=== PATIENT | female | born 1960 | race Caucasian/White ===

== ENCOUNTER 2016-04-14 12:25 | Emergency (ER) | payer SELFPAY ==
[~2016-04-14] VITALS: Ht 162.6 cm; Wt 91.2 kg
[~2016-04-14 12:25] MED LIST: CLON1TAB3 PO; METO50TA2 PO; PROM25SU32 RC
[2016-04-14] MEDS ORDERED: ONDANSETRON PF 4 MG/2 ML VIAL. IV ONE (13:15)
[2016-04-14] MEDS ORDERED: IV NORMAL SALINE 1000ML BAG 1,000 ML IV ONE ×2 (13:15→15:45)
[2016-04-14 13:43] LABS: BASO # 0.1 x10^3/uL (0.0-0.2); BASO % 0 % (0-3); EOS % 6 % (0-3); HEMATOCRIT 50.5 % (36.0-47.0); HEMOGLOBIN 16.4 g/dL (12.0-15.5); LYMPH # 2.8 x10^3/uL (1.0-4.8); LYMPH % 16 % (24-48); MEAN CORPUSCULAR HEMOGLOBIN 30 pg (25-35); MEAN CORPUSCULAR HGB CONC 33 g/dL (31-37); MEAN CORPUSCULAR VOLUME 93 fL (79-100); MONO % 10 % (0-9); NEUT % 68 % (31-73); PLATELET COUNT 394 x10^3/uL (140-400); RED BLOOD COUNT 5.43 x10^6/uL (3.50-5.40); RED CELL DISTRIBUTION WIDTH 13.8 % (11.5-14.5); WHITE BLOOD COUNT 17.6 x10^3/uL (4.0-11.0)
[2016-04-14 13:55] LABS: CALCIUM 9.2 mg/dL (8.5-10.1); GFR 57.6; POTASSIUM 3.1 mmol/L (3.5-5.1)
[2016-04-14] MEDS ORDERED: KETOROLAC TROMETHAMINE 30 MG/ML SYRINGE. IV ONE (14:00)
--- NOTE | 2016-04-14 14:59 | RAD ---
CT of the abdomen and pelvis without contrast, 04/14/2016: History: Nausea and vomiting and diarrhea Noncontrast scans were obtained as requested. The unopacified liver shows no abnormality. No radiopaque gallstones are seen. No pericholecystic edema is evident. The pancreas is unremarkable. The spleen is fairly small. The unopacified kidneys show no evidence of obstruction. There is mild bilateral renal cortical scarring. No adrenal abnormality is detected. There is mild aortoiliac calcific plaquing without evidence of aneurysm. No abdominal or pelvic adenopathy is seen. The uterus is unremarkable. The bowel loops are not dilated. There is fluid in the colon compatible with the history of diarrhea. No mural thickening is evident. The appendix is not visualized. No dilated appendix or pericecal inflammatory process is seen. The small bowel loops are unremarkable. The stomach is mildly distended with fluid and gas. No free fluid or free air is evident in the abdomen or pelvis. IMPRESSION: 1. Fluid throughout the colon compatible with the history of diarrhea. 2. Mild gastric distention. 3. Otherwise no acute abdominal or pelvic abnormality is detected. PQRS Compliance Statement: One or more of the following individualized dose reduction techniques were utilized for this examination: 1. Automated exposure control 2. Adjustment of the mA and/or kV according to patient size 3. Use of iterative reconstruction technique
[2016-04-14 17:00] VITALS: BP 140/82
--- NOTE | 2016-04-14 17:47 | PHYS DOC ---
Past Medical History Past Medical History: Anxiety, Diabetes-Type II, GERD, High Cholesterol, Hypertension, IBS, Migraines, Other Additional Past Medical Histor: NEUROPATHY Past Surgical History: Tonsillectomy, Tubal ligation Alcohol Use: None Drug Use: None Adult General Chief Complaint Chief Complaint: NAUSEA/VOMITING/DIARRHA HPI HPI 56-year-old female who is had ongoing diarrhea with some mild nausea and vomiting that started today. Patient states she's had diarrhea for the last several days. She been trying Imodium without relief. She also states generalized abdominal pain and denies any fever or chills. She has had little to eat or drink today. Pt has history of DM-II, HTN, and hyperlipidemia. Review of Systems Review of Systems Constitutional: Denies fever or chills [] Eyes: Denies change in visual acuity, redness, or eye pain [] HENT: Denies nasal congestion or sore throat [] Respiratory: Denies cough or shortness of breath [] Cardiovascular: No additional information not addressed in HPI [] GI: Denies abdominal pain, has nausea, has vomiting, denies bloody stools, has diarrhea [] : Denies dysuria or hematuria [] Musculoskeletal: Denies back pain or joint pain [] Integument: Denies rash or skin lesions [] Neurologic: Denies headache, focal weakness or sensory changes [] Endocrine: Denies polyuria or polydipsia [] Current Medications Current Medications Current Medications Medications (Trade) Dose Ordered Sig/[facility] Start Time Stop Time Status Last Admin Dose Admin Ketorolac Tromethamine 30 mg 30 mg 1X ONCE 04/14/16 14:00 04/14/16 14:02 DC 04/14/16 14:36 30 MG Ondansetron HCl (Zofran) 4 mg 1X ONCE 04/14/16 13:15 04/14/16 13:18 DC 04/14/16 13:41 4 MG Sodium Chloride (Iv Sodium Chloride 0.9% 1000ml Bag) 1,000 ml @ 1,000 mls/hr 1X ONCE 04/14/16 15:45 04/14/16 16:44 DC 04/14/16 17:00 1,000 MLS/HR Allergies Allergies Allergies Coded Allergies Type Severity Reaction Last Updated Verified No Known Drug Allergies 03/11/14 No Physical Exam Physical Exam Constitutional: Well developed, well nourished, no acute distress, non-toxic appearance. [] HENT: Normocephalic, atraumatic, bilateral external ears normal, oropharynx moist, no oral exudates, nose normal. [] Eyes: PERRLA, EOMI, conjunctiva normal, no discharge. [] Neck: Normal range of motion, no tenderness, supple, no stridor. [] Cardiovascular:Heart rate regular rhythm, no murmur [] Lungs & Thorax: Bilateral breath sounds clear to auscultation [] Abdomen: Bowel sounds normal, soft, mild generalized tenderness, no masses, no pulsatile masses. [] Skin: Warm, dry, no erythema, no rash. [] Back: No tenderness, no CVA tenderness. [] Extremities: No tenderness, no cyanosis, no clubbing, ROM intact, no edema. [] Neurologic: Alert and oriented X 3, normal motor function, normal sensory function, no focal deficits noted. [] Psychologic: Affect normal, judgement normal, mood normal. [] Current Patient Data Vital Signs Vital Signs Date Time Temp Pulse Resp B/P Pulse Ox O2 Delivery O2 Flow Rate FiO2 04/14/16 17:00 99 22 140/82 98 Room Air 04/14/16 13:08 97.5 97.5 Lab Values Laboratory Tests Test 04/14/16 13:30 White Blood Count 17.6x10^3/uL (4.0-11.0) H Red Blood Count 5.43x10^6/uL (3.50-5.40) H Hemoglobin 16.4g/dL (12.0-15.5) H Hematocrit 50.5% (36.0-47.0) H Mean Corpuscular Volume 93fL (79-100) Mean Corpuscular Hemoglobin 30pg (25-35) Mean Corpuscular Hemoglobin Concent 33g/dL (31-37) Red Cell Distribution Width 13.8% (11.5-14.5) Platelet Count 394x10^3/uL (140-400) Neutrophils (%) (Auto) 68% (31-73) Lymphocytes (%) (Auto) 16% (24-48) L Monocytes (%) (Auto) 10% (0-9) H Eosinophils (%) (Auto) 6% (0-3) H Basophils (%) (Auto) 0% (0-3) Neutrophils # (Auto) 12.0x10^3uL (1.8-7.7) H Lymphocytes # (Auto) 2.8x10^3/uL (1.0-4.8) Monocytes # (Auto) 1.7x10^3/uL (0.0-1.1) H Eosinophils # (Auto) 1.0x10^3/uL (0.0-0.7) H Basophils # (Auto) 0.1x10^3/uL (0.0-0.2) Sodium Level 142mmol/L (136-145) Potassium Level 3.1mmol/L (3.5-5.1) L Chloride Level 104mmol/L (98-107) Carbon Dioxide Level 26mmol/L (21-32) Anion Gap 12 (6-14) Blood Urea Nitrogen 13mg/dL (7-20) Creatinine 1.0mg/dL (0.6-1.0) Estimated GFR (Cockcroft-Gault) 57.6 Glucose Level 181mg/dL (70-99) H Calcium Level 9.2mg/dL (8.5-10.1) Laboratory Tests 04/14/16 13:30 Laboratory Tests 04/14/16 13:30 EKG EKG [] Radiology/Procedures Radiology/Procedures CT of the abdomen/pelvis without contrast demonstrates the following: History: Nausea and vomiting and diarrhea Noncontrast scans were obtained as requested. The unopacified liver shows no abnormality. No radiopaque gallstones are seen. No pericholecystic edema is evident. The pancreas is unremarkable. The spleen is fairly small. The unopacified kidneys show no evidence of obstruction. There is mild bilateral renal cortical scarring. No adrenal abnormality is detected. There is mild aortoiliac calcific plaquing without evidence of aneurysm. No abdominal or pelvic adenopathy is seen. The uterus is unremarkable. The bowel loops are not dilated. There is fluid in the colon compatible with the history of diarrhea. No mural thickening is evident. The appendix is not visualized. No dilated appendix or pericecal inflammatory process is seen. The small bowel loops are unremarkable. The stomach is mildly distended with fluid and gas. No free fluid or free air is evident in the abdomen or pelvis. Course & Med Decision Making Course & Med Decision Making Pertinent Labs and Imaging studies reviewed. (See chart for details) 26-year-old female who's having generalized abdominal pain and ongoing diarrhea was given several liters of IV fluids and felt symptomatically better. A stool sample was able to be obtained and sent for Clostridium difficile analysis. CT of her abdomen and pelvis demonstrated findings consistent with ongoing diarrheal illness. I'll be discharging her home with a course Zofran and told to follow closely with her primary care doctor and remain well-hydrated and return if she feels any dizziness or lightheadedness or inability to tolerate oral fluids. Dragon Disclaimer Dragon Disclaimer This electronic medical record was generated, in whole or in part, using a voice recognition dictation system. Departure Departure Impression: Primary Impression: Diarrhea Disposition: 01 HOME, SELF-CARE Condition: STABLE Referrals: NO PCP (PCP) Patient Instructions: Diet for Diarrhea, Adult Additional Instructions: Please take your zofran as needed for nausea and continue to drink plenty of fluids. Follow up closely with your primary doctor in the next 2-3 days for your symptoms. Return to the ER if you are unable to stay hydrated. Scripts Ondansetron Hcl (Zofran)4 Mg Tablet4 Mg PO BID PRN NAUSEA/VOMITING #10 TAB Prov:ARASELI DAI DO 04/14/16 ARASELI DAI DO Apr 14, 2016 17:47
[2016-04-14] MEDS ORDERED: ONDA4TAB7 PO (17:52)
== END 2016-04-14 17:57 | disposition home or self-care (01) ==
LOC: ER 12:25
DX: R19.7 Diarrhea, unspecified (principal); R11.2 Nausea with vomiting, unspecified; R10.84 Generalized abdominal pain; K58.9 Irritable bowel syndrome, unspecified; K21.9 Gastro-esophageal reflux disease without esophagitis; I10 Essential (primary) hypertension; E78.00 Pure hypercholesterolemia, unspecified; E11.40 Type 2 diabetes mellitus with diabetic neuropathy, unspecified; Z98.51 Tubal ligation status
CPT/HCPCS: 36415; 74176; 80048; 85027; 87324; 96361; 96374; 96375; 99285; J1885; J2405; J7030

== ENCOUNTER → 2019-11-13 | Outpatient (CLI) | payer OTHER ==
[~2019-11-13] MED LIST changes: -CLON1TAB3 PO; +CLONAZEPAM1 MG PO; -METO50TA2 PO; +METO50TA6 PO; +ONDA4TAB7 PO; +REGADENOSON 0.4 MG/5 ML DISP.SYRIN. IV ONE
--- NOTE | 2019-11-13 13:14 | RAD ---
MR#: [id number] Date of Study: 11/13/2019 Ordering Physician: GLORIA MADDEN, Referring Physician: JOI POWERS Tech: DAKOTA Sanchez, ARRT (R) (N) APPROVED REPORT Test Type: Pharmacological Stress Nurse/Tech: REJI Muir Test Indications: HTN, Anginal pain Cardiac History: HTN, SEE EMR Medications: SEE EMR Medical History: SEE EMR Resting ECG: SR Resting Heart Rate: 64 bpm Resting Blood Pressure: 86/50mmHg Pretest Chest Pain: No chest pain Nurse/Tech Notes Prior to test pt stated she forgot and took 55 units of her Novolog insulin this morning and was star ting to feel like her blood sugar was dropping. Bear Samuel gave pt an orange juice prior to my arrival . I checked her glucose and it was 151. Pt agreed to proceed with the stress portion of the test. S1S 2, lungs CTA, denied CP or SOA at this time. Consent: The procedure was explained to the patient in lay terms. Informed consent was witnessed. Hunter eout was entered into [employer]. History and Stress Test performed by RT Ishaan (R) (N) Pharm. Details Pharmacologic stress testing was performed using 0.4mg per 5ml of regadenoson given intravenously ove r 7-10 seconds. Stress Symptoms Pt c/o slight shortness of breath and a headache, which she c/o prior to her exam. otherwise, pt tole rated the test fine. POST EXERCISE Reason for Termination: Infusion complete Max HR: 75 bpm Max Blood Pressure: 87/56mmHg Blood Pressure response to exercise: Normal blood pressure response during stress. Heart Rate response to exercise: Normal hear rate response to stress. Chest Pain: No. Arrhythmia: No. ST Change: No. INTERPRETATION Stress EKG Conclusion: Baseline EKG showed sinus rhythm. No ischemic changes at peak stress. No arr hythmias. Imaging Protocol IMAGE PROTOCOL: Rest Tc-99m/stress Tc-99m 1 day Rest: Stress: Viability: Radiopharm.Tc99m [id number] Sestamibi Dose10.9mCi 32mCi Img Date 11/13/2019 11/13/2019 Inj-Img [id number]. 60min. Rest Admin Site:IV - Right AntecubitalAdministrator:DAKOTA Sanchez, ARRT (R)(N) Stress Admin Site: IV - Right AntecubitalAdministrator: Saira Samuel, RT (R)(N) STRESS DATA End Diast. Vol.62.0mlAv. Heart Rate73.0bpm End Syst. Vol.16.0mlCO Index BSA0.0L/min Myocardial Whsa401.0gEject. Mlojpkkr56.0% Stress Rates Pk. Fill Rate2.97EDV/secLVtime Pk. Fill 243.75msec Pk. Empty Rate5.22ESV/secLVtime Pk. Harqg895.20msec 03/02 Pk. Fill1.44EDV/sec Stress Scores Regional WT0.00Summed WT4.00 Regional WM0.00Summed WM2.00 Study quality was good. Left Ventricular size was Normal at Rest and Stress. Lung uptake was . Left Ventricular ejection fraction is 73%. The rest and stress images show normal perfusion, normal contraction and thickening. LV Perf. Quant 17 Seg. SSS1.00 17 Seg. SRS0.00 17 Seg. SDS1.00 Stress Defect Extent (% LAD)0.00Rest Defect Extent (% LAD)0.00Rev. Defect Extent (% LAD)0.00 Stress Defect Extent (% LCX) 0.00Rest Defect Extent (% LCX)0.00Rev. Defect Extent (% LCX)0.00 Stress Defect Extent (% RCA)0.00Rest Defect Extent (% RCA)0.00Rev. Defect Extent (% RCA)0.00 Stress Defect Extent (% LU)0.00Rest Defect Extent (% LU)0.00Rev. Defect Extent (% LU)0.00 Conclusion 1. Regadenoson cardioisotope stress test did not show any evidence of ischemia or infarct. 2. Normal left ventricular systolic function with ejection fraction calculated at 73%. 3. Low risk for cardiac events. Signed by : Jay Gonzalez, Electronically Approved : 11/13/2019 13:13:34
== END | disposition home or self-care (01) ==
LOC: NM 09:40
PROVIDERS: ATTEND Internal Medicine
DX: I10 Essential (primary) hypertension (principal); I20.9 Angina pectoris, unspecified; J45.909 Unspecified asthma, uncomplicated; R29.6 Repeated falls; Z68.39 Body mass index [BMI] 39.0-39.9, adult
CPT/HCPCS: 78452; 82962; 93017; A9500; J2785